=== PATIENT | female | born 1950 | race Caucasian/White ===

== ENCOUNTER → 2016-08-18 | Outpatient (CLI) | payer BC ==
[~2016-08-18] MED LIST: ALEN70TA4 PO; AMLO-114 PO; ASPI81TA28 PO; ATOR-24 PO; BIOT1TAB5; CALC600T9 PO; CETI10TA10 PO; CINNAMON PO; ESTCR PV; FLUO10CA48 PO; GABA-113 PO; LORA-741 PO; LOSA1TAB38 PO; MOME220A INH; MULT-506 PO; OMEG10007 PO; ONDA4TAB46 PO; PANT40TA PO; PROBIOTIC OR; RANI300T2 PO; SUCR1TAB29 PO; TIZA2CAP PO; TRAM-10 PO; XPNIN INH; hyoscyamine SL; lidocaine cream
--- NOTE | 2016-08-18 14:24 | DIAGNOSTIC IMAGING REPORT ---
THORACIC SPINE MRI HISTORY: THORACIC RADICULOPATHY TECHNIQUE: Multiplanar multisequence MRI of the thoracic spine was performed without the use of contrast. COMPARISON: Thoracic spine 06/30/2016. FINDINGS: Alignment and curvature are intact. No fracture or subluxation. No significant central canal or neural foraminal narrowing. The thoracic spinal cord is normal in course, caliber, and signal intensity. No disc herniations. Normal marrow signal intensity seen throughout the visualized osseous structures. Disc spaces are relatively preserved for age. Paraspinal soft tissues are unremarkable. Anterior fusion within the lower cervical spine. IMPRESSION: 1. Normal thoracic spinal cord. 2. No disc herniations. No significant central canal or neural foraminal narrowing. 3. No fracture or subluxation within the thoracic spine. Electronically signed by: Elfego Wilson M.D. 08/18/2016 2:22 PM Dictated Date/Time: 08/18/2016 2:15 PM
== END | disposition home or self-care (01) ==
LOC: C.MRIBC 13:23
PROVIDERS: ATTEND Anesthesiology
DX: M54.15 Radiculopathy, thoracolumbar region (principal)

== ENCOUNTER → 2016-09-14 | Outpatient (CLI) | payer BC ==
--- NOTE | 2016-09-14 15:39 | DIAGNOSTIC IMAGING REPORT ---
TWO VIEW CHEST CLINICAL HISTORY: Postprocedural examination. Right intercostal nerve block. FINDINGS: PA and lateral chest radiographs are compared to study dated 08/16/2015. The cardiomediastinal silhouette is unremarkable. There is atherosclerotic calcification of the thoracic aorta. Emphysematous change and chronic interstitial thickening are similar to previous. No airspace consolidation or pleural effusion is identified. Slightly increased density projecting over the right midlung is likely related to the intercostal nerve block. There is no pneumothorax. The skeletal structures are osteopenic. The bone a thorax appears intact. Fusion hardware is noted in the lower cervical spine. IMPRESSION: 1. No pneumothorax is identified post procedure. 2. Emphysema. No airspace consolidation or pleural effusion is seen.. Electronically signed by: Trell Velásquez M.D. 09/14/2016 3:37 PM Dictated Date/Time: 09/14/2016 3:35 PM
== END | disposition home or self-care (01) ==
LOC: C.RADBC 14:58
PROVIDERS: ATTEND Anesthesiology
DX: G58.0 Intercostal neuropathy (principal); J43.9 Emphysema, unspecified

== ENCOUNTER → 2016-09-21 | Outpatient (CLI) | payer BC | END | disposition home or self-care (01) | LOC: C.MAMM 12:25 | PROVIDERS: ATTEND Internal Medicine | DX: M81.0 Age-related osteoporosis without current pathological fracture (principal) ==

== ENCOUNTER → 2016-09-22 | Outpatient (CLI) | payer BC ==
[2016-09-22 14:25] LABS: ESTIMATED AVERAGE GLUCOSE 123 mg/dl; HA1C FLAG Normal (Normal)
[2016-09-22 14:31] LABS: ALT/SGPT 25 U/L (12-78); AST/SGOT 11 U/L (15-37); BLOOD UREA NITROGEN 10 mg/dl (7-18); BUN/CREATININE RATIO 14.5 (10-20); CALCIUM 8.7 mg/dl (8.5-10.1); CARBON DIOXIDE 30 mmol/L (21-32); CHLORIDE 102 mmol/L (98-107); CREATININE 0.69 mg/dl (0.60-1.20); GLUCOSE 95 mg/dl (70-99); POTASSIUM 3.8 mmol/L (3.5-5.1); SODIUM 139 mmol/L (136-145)
[2016-09-22 14:41] LABS: ALB/GLOB RATIO 1.2 (0.9-2); ALKALINE PHOSPHATASE 57 U/L (45-117); CHOLESTEROL 138 mg/dl (0-200); CHOLESTEROL/HDL RATIO 1.9; HDL CHOLESTEROL 72 mg/dl; LDL CHOLESTEROL CALCULATED 47 mg/dl; TRIGLYCERIDES 94 mg/dl (0-150); VERY LOW DENSITY LIPOPROT CALC 19 mg/dl
--- NOTE | 2016-09-28 10:01 | CODING QUERY MEDICAL NECESSITY ---
SUPPORTING DIAGNOSIS NEEDED A supporting diagnosis is required for the test/procedure performed on this patient in order for us to be reimbursed by the patient's insurance. Please provide a supporting diagnosis for the following test/procedure listed below next to the test name along with your signature. *If there is no additional diagnosis for this patient that would support the following test/procedure please document that below next to the test/procedure. Test(s)/Procedure(s) that require a supporting diagnosis: * GLYCATED HEMOGLOBIN DIAGNOSIS: * DOS: 09/22/16 Provider Signature: Date: Thank you Risa Hassan Health Information Management Once completed, please kindly fax back to [phone] For questions please call [phone]
== END | disposition home or self-care (01) ==
LOC: C.LABBC 09:58
PROVIDERS: ATTEND Family Medicine
DX: I10 Essential (primary) hypertension (principal); R73.03 Prediabetes; Z11.59 Encounter for screening for other viral diseases; E78.00 Pure hypercholesterolemia, unspecified

== ENCOUNTER → 2017-01-12 | Outpatient (CLI) | payer BC ==
--- NOTE | 2017-01-12 14:50 | DIAGNOSTIC IMAGING REPORT ---
CHEST 2 VIEWS ROUTINE CLINICAL HISTORY: R/O PTX pain COMPARISON STUDY: 09/14/2016 FINDINGS: Parenchymal fibrotic change right midlung. No evidence for postprocedural pneumothorax. Emphysematous changes present. IMPRESSION: No evidence pneumothorax. Electronically signed by: Ariel Turpin M.D. 01/12/2017 2:49 PM Dictated Date/Time: 01/12/2017 2:47 PM
== END | disposition home or self-care (01) ==
LOC: C.RADBC 14:03
PROVIDERS: ATTEND Anesthesiology
DX: Z98.890 Other specified postprocedural states (principal)

== ENCOUNTER → 2017-02-16 | Outpatient (CLI) | payer BC ==
--- NOTE | 2017-02-17 07:39 | MAMMOGRAPHY REPORT ---
BILATERAL DIGITAL SCREENING MAMMOGRAM WITH CAD: 02/16/2017 CLINICAL HISTORY: Routine screening. TECHNIQUE: Bilateral CC and MLO views were obtained. Current study was also evaluated with a Compute r Aided Detection (CAD) system. COMPARISON: Comparison is made to exams dated: 11/26/2015 mammogram, 11/20/2014 mammogram, 09/07/2013 m ammogram, 09/06/2012 mammogram, 09/01/2011 mammogram, and 08/19/2010 mammogram - [facility] enter. BREAST COMPOSITION: There are scattered areas of fibroglandular density in both breasts. FINDINGS: There are a few benign coarse calcifications bilaterally. No suspicious mass, architectura l distortion or cluster of suspicious microcalcifications is seen. IMPRESSION: ACR BI-RADS CATEGORY 1: NEGATIVE There is no mammographic evidence of malignancy. A 1 year screening mammogram is recommended. The pa tient will receive written notification of the results. Approximately 10% of breast cancers are not detected with mammography. A negative mammographic report should not delay biopsy if a clinically suggestive mass is present. Ariela Us M.D. ay/:02/16/2017 15:38:16 Ton Cylinder Inspector: Hannah Batista RT(R)(M), [facility] letter sent: Normal 1/2 BI-RADS Code: ACR BI-RADS Category 1: Negative
== END | disposition home or self-care (01) ==
LOC: C.MAMM 14:08
PROVIDERS: ATTEND Obstetrics & Gynecology
DX: Z12.31 Encounter for screening mammogram for malignant neoplasm of breast (principal)

== ENCOUNTER → 2017-08-26 | Outpatient (CLI) | payer BC ==
[2017-08-26 13:13] LABS: BASO % 0.2 %; BASO ABS # 0.01 K/uL (0-0.2); EOS % 1.4 %; EOS ABS # 0.07 K/uL (0-0.5); HEMATOCRIT 37.8 % (37-47); HEMOGLOBIN 12.3 g/dL (12.0-16.0); LYMPH % 32.5 %; LYMPH ABS # 1.58 K/uL (1.2-3.4); MEAN CELL VOLUME 95.5 fL (80-100); MEAN CORPUSCULAR HEMOGLOBIN 31.1 pg (25-34); MEAN CORPUSCULAR HGB CONC 32.5 g/dl (32-36); MEAN PLATELET VOLUME 10.3 fL (7.4-10.4); MONO % 11.3 %; MONO ABS # 0.55 K/uL (0.11-0.59); NEUT % 54.6 %; NEUT ABS # 2.65 K/uL (1.4-6.5); PLATELET COUNT 314 K/uL (130-400); RED CELL DISTRIBUTION WIDTH SD 44.9 fL (36.4-46.3); WHITE BLOOD COUNT 4.86 K/uL (4.8-10.8)
[2017-08-26 13:30] LABS: HEMOGLOBIN A1C 5.9 % (4.5-5.6)
[2017-08-26 14:04] LABS: ALBUMIN 4.1 gm/dl (3.4-5.0); BLOOD UREA NITROGEN 10 mg/dl (7-18); CALCIUM 9.3 mg/dl (8.5-10.1); CARBON DIOXIDE 28 mmol/L (21-32); CREATININE 0.62 mg/dl (0.60-1.20); GLUCOSE 99 mg/dl (70-99); POTASSIUM 3.7 mmol/L (3.5-5.1); SODIUM 134 mmol/L (136-145)
[2017-08-26 14:07] LABS: ALKALINE PHOSPHATASE 52 U/L (45-117); ALT/SGPT 23 U/L (12-78); AST/SGOT 18 U/L (15-37); TOTAL PROTEIN 7.4 gm/dl (6.4-8.2)
== END | disposition home or self-care (01) ==
LOC: C.LABBC 11:49
PROVIDERS: ATTEND Nurse Practitioner Family
DX: R10.30 Lower abdominal pain, unspecified (principal); R73.03 Prediabetes; E78.00 Pure hypercholesterolemia, unspecified; I10 Essential (primary) hypertension; M81.0 Age-related osteoporosis without current pathological fracture

== ENCOUNTER → 2017-08-26 | Outpatient (CLI) | payer BC ==
--- NOTE | 2017-08-26 11:47 | DIAGNOSTIC IMAGING REPORT ---
PELVIC COMPLETE NON OB HISTORY: 67 years-old Female LOWER ABDOMINAL PAIN acute lower abdominal pain COMPARISON: None available TECHNIQUE: Multiple real-time sonographic images of the deep pelvic structures were obtained transabdominally assessing grayscale appearance and color flow. FINDINGS: Patient refused the transvaginal component of the study. Anteflexed uterus measures 4.8 x 2.2 x 3.3 cm. Endometrium is within normal limits, 3 mm. No myometrial mass lesions identified. The left adnexa is not diagnostically visualized, obscured by bowel gas. Cystic lesion of the right adnexum measures up to 4.1 x 3.2 x 2.9 cm without internal vascularity identified. The right ovary is also not visualized. No significant free pelvic fluid. IMPRESSION: 1. Limited study as above. Patient refused the transvaginal portion of the study. 2. Uterus and endometrium are unremarkable. 3. 4.1 cm cyst of the right adnexum. 4. Nonvisualization of the bilateral ovaries. The above report was generated using voice recognition software. It may contain grammatical, syntax or spelling errors. Electronically signed by: Andry Laboy M.D. 08/26/2017 11:46 AM Dictated Date/Time: 08/26/2017 11:43 AM
== END | disposition home or self-care (01) ==
LOC: C.ULTRBC 11:01
PROVIDERS: ATTEND Nurse Practitioner Family
DX: R10.30 Lower abdominal pain, unspecified (principal)

== ENCOUNTER → 2017-09-28 | Day surgery (SDC) | payer BC ==
[2017-09-22 11:59] VITALS: Ht 162.6 cm; Wt 54.5 kg
[~2017-09-28] VITALS: Ht 162.6 cm; Wt 54.5 kg
[~2017-09-28] MED LIST changes: -ALEN70TA4 PO; +AMT10 PO; +AMT24 PO; -BIOT1TAB5; +BIOT1TAB5 PO; +CINN500C13 PO; -CINNAMON PO; +LEVA45AE INH; +LIDOCAINE HCL 2% 2 ML VIAL (20MG/ML) ONE; +META1TAB22 PO; +MISCCAP80 PO; +MOME16.7 INH; -MOME220A INH; -PANT40TA PO; +PRLSR20 PO; -PROBIOTIC OR; +PROPOFOL IV EMULSION 10 MG/ML 20 ML VIAL IV ONE; +PSEU60TA80 PO; +SODIUM CHLORIDE 0.9% 500ML 500 ML IV ONE; -TRAM-10 PO; -XPNIN INH; -hyoscyamine SL; -lidocaine cream
--- NOTE | 2017-09-28 10:08 | Endo History and Physical ---
History & Physical Date of Service: Sep 28, 2017. Chief Complaint: history of polyps Referring Physician: Dr. Marie History of Present Illness hx of colon polyps Past Medical History Osteoporosis, Asthma, Anxiety, Reflux, High Cholesterol, Hypertension Past Surgical History Hx Cardiac Surgery: No Hx Internal Defibrillator: No Hx Pacemaker: No Hx Abdominal Surgery: No Hx of Implantable Prosthesis: No Hx Post-Op Nausea and Vomiting: Yes Hx Cancer Surgery: No Hx Thoracic Surgery: No Hx Orthopedic: Yes (ACDF, L CTR, R/L THUMB, LEFT SHOULDER ARTHROSCOPY, PROMISE FEET BONE SPUR SX) Hx Urinary Tract Surgery: No Family History Colon CA, Polyp Social History Smoking Status: Never Smoker Hx Substance Use: Yes (SEE MED LIST) Hx Alcohol Use: No Allergies Coded Allergies: Carisoprodol (Verified Allergy, Severe, EXTREME TIRED/DIZZY, 09/28/17) Ciprofloxacin (Verified Allergy, Intermediate, DIZZINESS, 09/28/17) Hydrocodone (Verified Allergy, Intermediate, HIVES, 09/28/17) Metronidazole (Verified Allergy, Intermediate, RASH, DIZZY, 09/28/17) Moxifloxacin (Verified Allergy, Intermediate, UNKNOWN, 09/28/17) Quinolones (Verified Allergy, Intermediate, HIVES, 09/28/17) Tramadol (Verified Allergy, Intermediate, MAY CAUSE SEIZURES/HIVES, ) Dicyclomine (Verified Allergy, Unknown, UNKNOWN, 09/28/17) Lisinopril (Verified Allergy, Unknown, DIZZY, 09/28/17) Methocarbamol (Verified Allergy, Unknown, UNKNOWN, 09/28/17) Sulfa Antibiotics (Verified Allergy, Unknown, RASH, 09/28/17) Azithromycin (Verified Adverse Reaction, Mild, DIARRHEA, 09/28/17) Propoxyphene (Verified Adverse Reaction, Mild, DIZZY, 09/28/17) Verapamil (Verified Adverse Reaction, Mild, UNKNOWN, 09/28/17) Baclofen (Verified Adverse Reaction, Unknown, CAUSES BLADDER INFECTION SYMPTOMS, 09/28/17) Linaclotide (Verified Adverse Reaction, Unknown, SEVERE DIARRHEA, 09/28/17) Current Medications Reported Home Medications Medications Dose Route/Sig Max Daily Dose Days Date Category Skelaxin (Metaxalone) 800 Mg Tab 800 Mg PO TID 09/28/17 Reported Asmanex Hfa (Mometasone Furoate (Inhalation) 100 Mcg/Act Aer 1 Puff INH QAM 09/22/17 Reported Levalbuterol Tartrate Hfa (Levalbuterol Tartrate) 45 Mcg/Act Aer 1 Puff INH BID PRN 09/22/17 Reported Probiotic (Probiotic Product) 1 Cap Cap 1 Cap PO QAM 09/22/17 Reported Cinnamon Extract (Cinnamon) 500 Mg Cap 500 Mg PO QAM 09/22/17 Reported Mucinex D (Pseudoephedrine-Guaifenesin) 1 Tab Tab 1 Tab PO QAM PRN 09/22/17 Reported Prilosec (Omeprazole) 20 Mg Capcr 20 Mg PO QAM 09/22/17 Reported Amitriptyline HCl 10 Mg Tab 10 Mg PO HS 09/22/17 Reported Amitiza (Lubiprostone) 24 Mcg Cap 24 Mcg PO BID 09/22/17 Reported Biotin 1,000 Mcg Tab 1,000 Mcg PO QAM 07/30/16 Reported Aspirin Ec (Aspirin) 81 Mg Tab 81 Mg PO QPM 07/30/16 Reported Calcium + D (Calcium Carbonate-Vitamin D) 1 Tab Tab 1,200 Mg PO DAILY 06/30/16 Reported Prozac (Fluoxetine HCl) 10 Mg Cap 20 Mg PO QAM 06/30/16 Reported Ativan (Lorazepam) 0.5 Mg Tab 0.5-1 Mg PO HS PRN 06/30/16 Reported Cozaar (Losartan Potassium) 100 Mg Tab 50 Mg PO QAM 06/30/16 Reported Zofran (Ondansetron HCl) 4 Mg Tab 4 Mg PO Q8 PRN 06/30/16 Reported Carafate (Sucralfate) 1 Gm Tab 1 Gm PO QID PRN 06/30/16 Reported Neurontin (Gabapentin) 300 Mg Cap 300 Mg PO QPM 06/30/16 Reported Lipitor (Atorvastatin Calcium) 40 Mg Tab 40 Mg PO HS 06/30/16 Reported Zyrtec (Cetirizine Hcl) 10 Mg Tab 10 Mg PO DAILY PRN 08/17/12 Reported Estrace (Estradiol Vaginal) 0.1 Mg/Gm Cre 1 Gm PV WK 08/17/12 Reported Shelby-3 (Fish Oil) 1 Ea Cap 2 Cap PO DAILY 05/27/09 Reported Zantac (Ranitidine HCl) 300 Mg Tab 300 Mg PO BID 05/27/09 Reported Multivitamin (Multivitamins) Tab 1 Tab PO DAILY 05/27/09 Reported Norvasc (Amlodipine Besylate) 10 Mg Tab 5 Mg PO QAM 05/27/09 Reported Vital Signs Weight (Kilograms): 54.55 Height (Feet): 5 Height (Inches): 4 Date Time Temp Pulse Resp B/P (MAP) Pulse Ox O2 Delivery O2 Flow Rate FiO2 09/28/17 09:22 36.5 89 20 147/64 (91) 98 Room Air Physical Exam General Appearance: no apparent distress Respiratory/Chest: Auscultation: rhonchi Cardiovascular: Heart Auscultation: RRR Abdomen: Inspection & Palpation: soft Liver: non-tender Assessment and Plan stable for colonoscopy
--- NOTE | 2017-09-28 10:50 | GI REPORT ---
Procedure Date: 09/28/2017 9:25 AM Procedure: Colonoscopy Indications: High risk colon cancer surveillance: Personal history of non-advanced adenoma Medicines: See the Anesthesia note for documentation of the administered medications Complications: No immediate complications. Estimated Blood Loss: Estimated blood loss: none. Procedure: Pre-Anesthesia Assessment: - Prior to the procedure, a History and Physical was performed, and patient medications, allergies and sensitivities were reviewed. The patient's tolerance of previous anesthesia was reviewed. - The risks and benefits of the procedure and the sedation options and risks were discussed with the patient. All questions were answered and informed consent was obtained. - Patient identification and proposed procedure were verified prior to the procedure by the physician and the nurse. The procedure was verified in the pre-procedure area. - Pre-procedure physical examination revealed no contraindications to sedation. - After reviewing the risks and benefits, the patient was deemed in satisfactory condition to undergo the procedure. After I obtained informed consent, the scope was passed under direct vision. Throughout the procedure, the patient's blood pressure, pulse, and oxygen saturations were monitored continuously. The scope was introduced through the anus and advanced to the terminal ileum, with identification of the appendiceal orifice and IC valve. The colonoscopy was performed without difficulty. The patient tolerated the procedure well. The quality of the bowel preparation was good. Findings: The perianal and digital rectal examinations were normal. The terminal ileum appeared normal. Many small-mouthed diverticula were found in the sigmoid colon. The exam was otherwise without abnormality on direct and retroflexion views. Impression: - The examined portion of the ileum was normal. - Diverticulosis in the sigmoid colon. - The examination was otherwise normal on direct and retroflexion views. - No specimens collected. Recommendation: - Repeat colonoscopy in 5 years for surveillance. - Discharge patient to home. Solomon Salmon M.D. Solomon Salmon MD 09/28/2017 10:50:22 AM This report has been signed electronically. Note Initiated On: 09/28/2017 9:25 AM I attest to the content of the Intraoperative Record and orders documented therein, exceptions below
--- NOTE | 2017-09-28 11:03 | Discharge Instructions ---
Endoscopy Patient Instructions Date / Procedure(s) Performed Sep 28, 2017. Colonoscopy Allergy Information Coded Allergies: Carisoprodol (Verified Allergy, Severe, EXTREME TIRED/DIZZY, 09/28/17) Ciprofloxacin (Verified Allergy, Intermediate, DIZZINESS, 09/28/17) Hydrocodone (Verified Allergy, Intermediate, HIVES, 09/28/17) Metronidazole (Verified Allergy, Intermediate, RASH, DIZZY, 09/28/17) Moxifloxacin (Verified Allergy, Intermediate, UNKNOWN, 09/28/17) Quinolones (Verified Allergy, Intermediate, HIVES, 09/28/17) Tramadol (Verified Allergy, Intermediate, MAY CAUSE SEIZURES/HIVES, ) Dicyclomine (Verified Allergy, Unknown, UNKNOWN, 09/28/17) Lisinopril (Verified Allergy, Unknown, DIZZY, 09/28/17) Methocarbamol (Verified Allergy, Unknown, UNKNOWN, 09/28/17) Sulfa Antibiotics (Verified Allergy, Unknown, RASH, 09/28/17) Azithromycin (Verified Adverse Reaction, Mild, DIARRHEA, 09/28/17) Propoxyphene (Verified Adverse Reaction, Mild, DIZZY, 09/28/17) Verapamil (Verified Adverse Reaction, Mild, UNKNOWN, 09/28/17) Baclofen (Verified Adverse Reaction, Unknown, CAUSES BLADDER INFECTION SYMPTOMS, 09/28/17) Linaclotide (Verified Adverse Reaction, Unknown, SEVERE DIARRHEA, 09/28/17) Discharge Date / Findings Sep 28, 2017. No polyps found Medication Instructions Stopped Medication(s): Last dose ASA 2 days ago,held supplements for 2 days Provider Instructions Activity Restrictions - No exercising or heavy lifting for 24 hours. - Do not drink alcohol the day of the procedure. - Do not drive a car or operate machinery until the day after the procedure. - Do not make any important decisions or sign important papers in 24 hours after the procedure. Following Day: - Return to full activity which may include returning to work/school. Diet Start your diet with liquids and light foods (jello, soup, juice, toast). Then eat your usual diet if not nauseated. Treatment For Common After Affects For mild abdominal pain, bloating, or excessive gas: - Rest - Eat lightly - Lie on right side Follow-Up Information Follow-up with Dr. Marie as scheduled Anesthesia Information What You Should Know You have had a procedure that required some medicine to reduce anxiety and discomfort. This treatment is called moderate sedation. After receiving the treatment, you may be sleepy, but you will be able to breathe on your own. The effects of the treatment may last for several hours. Follow these instructions along with Activity/Diet recommendations noted above: * Do NOT do anything where dizziness or clumsiness would be dangerous. * Rest quietly at home today, then you can be up and about tomorrow. * Have a responsible person stay with you the rest of today. * You may have had an I.V. today. If so, you may take the dressing off later today. Recommendations Call your doctor if: * Trouble breathing * Continuous vomiting for more than 24 hours * Temperature above 101 degrees * Severe abdominal pain or bloating * Pain not relieved by pain medicine ordered * There is increased drainage or redness from any incision * A large amount of rectal bleeding greater than 2-3 tablespoons. (If you had a polyp/s removed or have hemorrhoids, a small amount of blood - from the rectum is to be expected.) * You have any unanswered questions or concerns. IN THE EVENT OF A SERIOUS EMERGENCY, GO TO THE NEAREST EMERGENCY ROOM Your discharge instructions were prepared by provider Solomon Salmon. Patient Instructions Signature Page Oralia Carver Patient (or Guardian) Signature/Date: I have read and understand the instructions given to me by my caregivers. Caregiver/RN/Doctor Signature/Date: The above-named patient and/or guardian has received patient instructions on this date. + Original Patient Signature Page (only) stays with chart. Please make copy for patient.
--- NOTE | 2017-09-28 11:07 | Anesthesiology Progress Note ---
Anesthesia Post Op Note Date & Time Sep 28, 2017 at 11:07 Vital Signs Pain Intensity: 0 Vital Signs Past 12 Hours Date Time Temp Pulse Resp B/P (MAP) Pulse Ox O2 Delivery O2 Flow Rate FiO2 09/28/17 10:52 74 20 117/58 (77) 99 Room Air 09/28/17 10:37 81 20 99/54 (69) 99 Room Air 09/28/17 09:22 36.5 89 20 147/64 (91) 98 Room Air Notes Mental Status: alert / awake / arousable, participated in evaluation Pt Amnestic to Procedure: Yes Nausea / Vomiting: adequately controlled Pain: adequately controlled Airway Patency, RR, SpO2: stable & adequate BP & HR: stable & adequate Hydration State: stable & adequate Anesthetic Complications: no major complications apparent
[2017-09-28 11:08] VITALS: BP 121/58; PULSE 72; O2SAT 98
== END | disposition home or self-care (01) ==
LOC: C.GI 08:49
PROVIDERS: ATTEND Internal Medicine Gastroenterology
DX: Z12.11 Encounter for screening for malignant neoplasm of colon (principal); Z86.010 Personal history of colon polyps; K57.30 Diverticulosis of large intestine without perforation or abscess without bleeding; M81.0 Age-related osteoporosis without current pathological fracture; J45.909 Unspecified asthma, uncomplicated; F41.9 Anxiety disorder, unspecified; K21.9 Gastro-esophageal reflux disease without esophagitis; E78.00 Pure hypercholesterolemia, unspecified; I10 Essential (primary) hypertension; Z88.8 Allergy status to other drugs, medicaments and biological substances; Z88.2 Allergy status to sulfonamides; Z88.1 Allergy status to other antibiotic agents; Z79.899 Other long term (current) drug therapy; Z79.82 Long term (current) use of aspirin

== ENCOUNTER → 2017-10-18 | Outpatient (CLI) | payer BC ==
[~2017-10-18] MED LIST changes: -LIDOCAINE HCL 2% 2 ML VIAL (20MG/ML) ONE; -PROPOFOL IV EMULSION 10 MG/ML 20 ML VIAL IV ONE; -SODIUM CHLORIDE 0.9% 500ML 500 ML IV ONE; -TIZA2CAP PO
--- NOTE | 2017-10-18 15:18 | MAMMOGRAPHY REPORT ---
UNILATERAL RIGHT DIGITAL DIAGNOSTIC MAMMOGRAM TOMOSYNTHESIS WITH CAD AND TARGETED RIGHT ULTRASOUND: CLINICAL HISTORY: 67-year-old woman presents after she noticed a lump in the upper outer quadrant of the right breast, which she reports is not there anymore. No skin thickening or erythema. No nipple discharge. No family history of breast cancer. Her provider also reported she palpated a lump on p hysical exam in the 10:00 right breast, 4 cm from the nipple. TECHNIQUE: Right breast tomosynthesis in addition to standard 2D mammography was performed. Current jess toure was also evaluated with a Computer Aided Detection (CAD) system. COMPARISON: Comparison is made to exams dated: 02/16/2017 mammogram, 11/26/2015 mammogram, 11/20/2014 m ammogram, 09/07/2013 mammogram, 09/06/2012 mammogram, and 09/01/2011 mammogram - [facility] enter. BREAST COMPOSITION: There are scattered areas of fibroglandular density in the right breast. FINDINGS: A palpable marker was not placed on the skin of the right breast prior to mammography given that the patient no longer feels the lump today. The glandular pattern is similar to prior mammogra ms. There are 4 benign rim calcifications in the anterior right breast. No focal skin thickening is appreciated. No suspicious mass, architectural distortion or cluster of microcalcifications is seen . Targeted ultrasound was performed in the upper outer quadrant of the right breast with particular att ention to the 10:00 axis, 4 cm from the nipple in the area of palpable lump identified by the patient 's provider. Sonographically normal tissue is seen without a suspicious solid or cystic mass. IMPRESSION: ACR BI-RADS CATEGORY 2: BENIGN, TARGETED ULTRASOUND ACR BI-RADS CATEGORY 2: BENIGN There is no mammographic or targeted sonographic evidence of malignancy in the right breast. No susp icious abnormality is identified in the 10:00 right breast in the area of palpable lump identified by the patient and her provider, which is no longer felt today. Therefore, continued clinical monitorin g is recommended, as biopsy of a clinically suspicious mass should not be precluded by negative imagi ng. Otherwise, recommend return at time of next annual screening exam, due in February 2018. Approximately 10% of breast cancers are not detected with mammography. A negative mammographic report should not delay biopsy if a clinically suggestive mass is present. Ariela Us M.D. ay/:10/18/2017 08:58:47 Jig Fitter: Ivana GRACE)(Keagan), [facility] letter sent: Normal 1/2 BI-RADS Code: ACR BI-RADS Category 2: Benign Ultrasound BI-RADS: ACR BI-RADS Category 2: Benign
== END | disposition home or self-care (01) ==
LOC: C.MAMM 08:15
PROVIDERS: ATTEND Physician Assistant
DX: N63.10 Unspecified lump in the right breast, unspecified quadrant (principal)

== ENCOUNTER → 2018-03-11 | Outpatient (CLI) | payer BC ==
[~2018-03-11] MED LIST changes: -AMLO-114 PO; +AMLO10TA3 PO
--- NOTE | 2018-03-11 14:35 | MAMMOGRAPHY REPORT ---
BILATERAL DIGITAL SCREENING MAMMOGRAM TOMOSYNTHESIS WITH CAD: 03/11/2018 TECHNIQUE: The study was acquired using full field digital technology and interpreted from soft copy. Breast tomosynthesis in addition to standard 2D mammography was performed. Current study was also ev aluated with a Computer Aided Detection (CAD) system. COMPARISON: Comparison is made to exams dated: 10/18/2017 mammogram, 02/16/2017 mammogram, 11/26/2015 m ammogram, 11/20/2014 mammogram, 09/07/2013 mammogram, and 09/06/2012 mammogram - [facility] enter. BREAST COMPOSITION: There are scattered areas of fibroglandular density in both breasts. FINDINGS: No suspicious masses, calcifications, or areas of architectural distortion are noted in either breast . There has been no significant interval change compared to prior exams. IMPRESSION: ACR BI-RADS CATEGORY 1: NEGATIVE There is no mammographic evidence of malignancy. A 1 year screening mammogram is recommended.( 019) The patient will receive written notification of the results. Some breast cancers are not detected with mammography. A negative mammographic report should not ever y biopsy if a clinically suggestive mass is present. Heavenly Sibley M.D. ah/:03/11/2018 13:27:34 Hourly Shift: RT Corrine(R)(M), [facility] letter sent: Normal 1/2 BI-RADS Code: ACR BI-RADS Category 1: Negative
== END | disposition home or self-care (01) ==
LOC: C.MAMM 12:42
PROVIDERS: ATTEND Obstetrics & Gynecology
DX: Z12.31 Encounter for screening mammogram for malignant neoplasm of breast (principal)

== ENCOUNTER → 2018-03-22 | Outpatient (CLI) | payer BC | END | disposition home or self-care (01) | LOC: C.LAB1850 11:04 | PROVIDERS: ATTEND Physician Assistant | DX: I10 Essential (primary) hypertension (principal); E55.9 Vitamin D deficiency, unspecified; R53.83 Other fatigue ==

== ENCOUNTER → 2018-04-01 | Outpatient (CLI) | payer BC | END | disposition home or self-care (01) | LOC: C.PAPS 18:36 | PROVIDERS: ATTEND Obstetrics & Gynecology | DX: Z01.419 Encounter for gynecological examination (general) (routine) without abnormal findings (principal) ==